=== PATIENT | male | born 1965 | race Two or more races ===

== ENCOUNTER 2019-01-24 16:25 | Emergency (ER) | payer OTHER ==
[~2019-01-24] VITALS: Ht 170.2 cm; Wt 74.8 kg
[2019-01-24] MEDS ORDERED: MIRT30TA PO (16:47)
[2019-01-24] MEDS ORDERED: GABA300C PO (16:47)
[2019-01-24] MEDS ORDERED: LIDOCAINE 1%-EPI 1:100,000 20 ML VIAL ONE (16:57)
[2019-01-24] MEDS ORDERED: LIDOCAINE 1%-EPI 1:100,000 20 ML VIAL TP ONE (17:00)
--- NOTE | 2019-01-24 17:16 | NUR ---
Patient discharged to [facility] in stable condition. Written and verbal after care instructions given. Patient verbalizes understanding of instruction.
[2019-01-24 17:18] VITALS: BP 135/61
== END 2019-01-24 17:19 ==
LOC: ER 16:30
DX: S01.112A Laceration without foreign body of left eyelid and periocular area, initial encounter (principal); F32.9 Major depressive disorder, single episode, unspecified; F19.20 Other psychoactive substance dependence, uncomplicated; Z02.89 Encounter for other administrative examinations; W18.09XA Striking against other object with subsequent fall, initial encounter; Y93.89 Activity, other specified; Y92.89 Other specified places as the place of occurrence of the external cause; Y99.8 Other external cause status
CPT/HCPCS: 12011; 99283; J3490